=== PATIENT | female | born 1935 | race Two or more races ===

== ENCOUNTER 2018-06-25 11:01 | Emergency (ER) | payer OTHER ==
[~2018-06-25] VITALS: Ht 157.5 cm; Wt 52.6 kg
[~2018-06-25 11:01] MED LIST: ASPIR 8181 MG; CAPOTEN50 MG; GLIPIZIDE10 MG
== END 2018-06-25 12:01 | disposition home or self-care (01) ==
LOC: ER 11:01
DX: T81.31XA Disruption of external operation (surgical) wound, not elsewhere classified, initial encounter (principal); Z48.01 Encounter for change or removal of surgical wound dressing